=== PATIENT | male | born 1955 | race Caucasian/White ===

== ENCOUNTER → 2020-12-26 15:18 | Outpatient (CLI) | payer OTHER, SELFPAY ==
[2020-12-09 13:18] VITALS: BMI 28.5
--- NOTE | 2020-12-26 15:20 | MRI_ITS ---
STUDY: MRI RIGHT SHOULDER REASON FOR EXAM: Male, 65 years old. Right shoulder strain. TECHNIQUE: Standardized fat and water weighted pulse sequences were obtained in all 3 orthogonal planes. COMPARISON: X-ray dated 11/29/2020. FINDINGS: Focal full thickness nonretracted supraspinatus/subscapularis interface anterior insertional tendon tear measuring 1 cm x 1.5 cm (coronal image 15, axial image 11 series 2 and sagittal image 15). Low-grade delaminating component at the supraspinatus and infraspinatus articular surface (coronal images 5 through 13 series 5). Mild/moderate supraspinatus, infraspinatus and subscapularis tendinosis. Normal teres minor tendon. No muscle atrophy. Moderate/severe intracapsular long biceps tendinosis with fraying and degeneration of the biceps labral anchor. Labral degeneration with small posterior inferior labral tear (axial images 16 and 17 series 2). Capsular ligaments intact with mild thickening. Normal rotator cuff interval. Small glenohumeral joint effusion with fluid extending to tear into the subacromial subdeltoid bursa. No acute fracture, dislocation or cortical destruction. Mild/moderate glenohumeral cartilage loss predominating inferiorly. Moderate acromioclavicular joint arthrosis. Anterior interval early narrowing. Intact coracohumeral and coracoacromial ligaments. Normal quadrilateral space. Normal axillary space. Normal deltoid muscle. Normal trapezius muscle. MRI/Upper Ext Joint Only(Routine) IMPRESSION: Focal full thickness nonretracted supraspinatus/subscapularis tendon tear with delaminating component Rotator cuff tendinosis without muscle atrophy Moderate/severe intracapsular long biceps tendinosis with fraying and degeneration of the biceps labral anchor Labral degeneration with small posterior inferior labral tear Mild capsular thickening/early adhesive change Glenohumeral and AC joint arthrosis with early anterior interval narrowing Small joint effusion with fluid extending through tear into the subacromial subdeltoid bursa Electronically Signed: Roosevelt Horne DO at 8:59 EDT Tel , Service support ,
== END ==
PROVIDERS: Referring Provider Physician Assistant Surgical; Visit Provider Physician Assistant Surgical
DX: S46.911A Strain of unspecified muscle, fascia and tendon at shoulder and upper arm level, right arm, initial encounter (principal); X58.XXXA Exposure to other specified factors, initial encounter; Y93.9 Activity, unspecified; Y92.9 Unspecified place or not applicable; Y99.9 Unspecified external cause status
CPT/HCPCS: 73221

== ENCOUNTER 2021-03-23 14:00 | Outpatient (RCR) | payer OTHER, SELFPAY ==
[2021-01-12 07:48] VITALS: BMI 28.1
--- NOTE | 2021-02-06 13:56 | HP.PTEVAL_ITS ---
Patient's Visit Information NESHA MERCHANT is a 65 year old M referred to Physical Therapy by Dr. Ra Lange DO with a diagnosis of Right Shoulder. Date of Evaluation: 02/06/21 Physical Therapist: Estela Pollard DPT - Visit Plan Frequency: 2-3x /Week Duration: 4 Weeks Plan: Focus on UE and scapular s/s- lifting mechanics and push/pull for job related tasks - Subjective December 26-Was holding a lead and the horse went straight overhead- he came into [facility]- took a look at it and had an MRI. MRI showed a tear- went to see Dr. Carnes did an injection last Saturday- it hurt worse after that- but is now a little improved. Right hand dominate. His current symptoms are night time. Sleep: disturbed- stiffens up- wakes him at night. Does have some pain during the day when he pushes it to hard at work. Pain is located in the AC joint and radiates to the shoulder blade and down to the elbow. Does have some pain into the forearm. Worst: 8/10 Agg: movement, sleep, not moving it. Eases: ice Best: 0/10. Describes the pain as clicking, sharp/stabbing pain. 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 No neck pain, JENKINS, blurred vision or dizziness. 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 No prior issues with shoulder. Goes back to the MD in 2 weeks. Was working out in a [employer] and [employer]- Declaration- 5x a week. PMHx/Meds: none since saw MD - Objective Posture: FH, RS- can correct but does not maintain. Gait: no deviation good trunk rotation and arm swing. Palpation: tender along infraspinatus, upper trap and into the bicipital groove. ROM: WFL in all planes with pain at end range flexion, abduction, internal rotation. Sensation: WNL. Strength: Scap: fair plus, Shoulder: 4+/5 throughout, Elbow:4+/5- pain with palm up, Wrist: 5/5 Hand Marker: 80 bilateral. Special Test: Speeds: positive, Carpenter: positive - Balance/Special Test Scores Quick DASH Score: 22.7250 - Goals Goal 1:: Patient will be I with HEP and progression Goal Time Frame: 4-6 Weeks Goal 2:: Patient will demo full AROM of the right shoulder without pain Goal Time Frame: 4-6 Weeks Goal 3:: Patient will report no pain with work related tasks for 1 week Goal Time Frame: 4-6 Weeks Goal 4:: Patient will maintain proper posture t/o tx to demo increased scap s/s. Goal Time Frame: 4-6 Weeks - Rehabilitation Potential Physical Therapy Diagnosis: Patient presents with hypomobility s/p work injury. He has decreased pain free ROM, scapular and UE strength/stabilization and muscular endurance leading to fair posture and increased pain with ADL's. Rehabilitation Potential: Fair - Anticipated Interventions Patient/Client Instruction: Educate patient on: Benefits of Fitness Program Therapeutic Exercise to Include: Strength training, Endurance training, Agility training, Body mechanics, Postural training, Flexibilty training, Neuromotor development, Dynamic Lumbar Stabilization, Scapular Strength/Stabilization For the Purpose of:: To improve muscle performance and motor function Cryotherapy (ice pack, ice massage): Yes Thermo therapy (hot pack): Yes Thank you for the opportunity to evaluate your patient. For Medicare and Medicare HMO plans, please review the plan of care and approve it. It will need to be FAXED BACK to us at [phone] for Medicare purposes. For Medicare only, by signing this I certify the plan of care. Please let me know if there are questions or concerns regarding this plan of care. Physician Signature: Date:
--- NOTE | 2021-03-07 17:23 | HP.PTREVAL ---
Dr. aR Lange, DO, It has been my pleasure to treat NESHA MERCHANT over the last 9 visits for Right Shoulder. Please see the progress note below for an update on the physical therapy plan of care! Subjective: Pt. reports having ~0.5/10 pain currently. Pt. reports having to be careful with any lifting in his R UE. Pt. is doing most activities at work, but is limited with [place] activities. Objective/Function: ROM: R shoulder: AROM: flexion 165deg, abd 150deg increase NW, functional ER C4, functional IR L3 NE. Pt. has increased pain with abd motion. MMT: R shoulder: flexion 4+/5, abd 4/5 increase NW, ext 5/5, ER 4+/5, IR 5/5. Pt. is overall improving, but still has pain with over head movements and with abduction with wt. Pt. has weakness in this range as well. Pt. has increased strength. He is hopeful to reduce all symptoms in order to get back to work without limitations or pain. Plan Plan: Cont. with POC with focus on strength of RTC and deltoid. Asking for extension of date range. Balance/Gait/Functional tests - Balance/Special Test Scores Quick DASH Score: 15.9075 Goals Goal 1:: Patient will be I with HEP and progression Goal Time Frame: 4-6 Weeks Goal 2:: Patient will demo full AROM of the right shoulder without pain Goal Time Frame: 4-6 Weeks Goal 3:: Patient will report no pain with work related tasks for 1 week Goal Time Frame: 4-6 Weeks Goal 4:: Patient will maintain proper posture t/o tx to demo increased scap s/s. Goal Time Frame: 4-6 Weeks Anticipated Interventions Patient/Client Instruction: Educate patient on: Benefits of Fitness Program Therapeutic Exercise to Include: Strength training, Endurance training, Agility training, Body mechanics, Postural training, Flexibilty training, Neuromotor development, Dynamic Lumbar Stabilization, Scapular Strength/Stabilization For the Purpose of:: To improve muscle performance and motor function Cryotherapy (ice pack, ice massage): Yes Thermo therapy (hot pack): Yes Please do not hesitate to contact me at [phone] by phone or if you have questions or concerns regarding this new plan of care! Sincerely, Willy Bach DPT
--- NOTE | 2021-03-23 14:39 | HP.PTDCSUM ---
It has been my pleasure to treat NESHA MERCHANT referred by Dr. Ra Lange DO, with the diagnosis of Right Shoulder for a total of 13 visit(s). Discharge Date: 03/23/21 Please see the following information for a summary of their discharge status. Subjective: Pt. reports having 3/10 pain upon arrival today. He is still having pain with reaching, lifting, even having his arm dangle at his side is painful. He is doing his work activities, but has to modify his work to accommodate. He denies N/T in his RUE, currently, but has has some in the past. Right Shoulder Pain Intensity (Out of 10): 3 % Improvement: 40 Objective/Function: ROM: R shoulder AROM: flexion 160deg increase NW, abd 155deg increase NW, functional ER C3 increase NW, functional IR increase worse L4. PROM: flexion 170deg NE, abd 177deg increase NW, ER at 90eg 70deg increase NW, IR at 90deg 50deg increase NW. MMT: RUE: shoulder: flexion 5-/5 increase NW, abd 4+/5 increase NW, ER 4/5 increase NW, IR 5-/5 increase NW, ext 5/5 NE. SPECIAL TESTING: - empty can, + HK, - biceps load, - speeds, - horn blowers, - lift off test,. Pt. filled out quick dash as well. Pt. was treated with ROM and strengthening. He is I with HEP. He is sleeping with frequent interruptions secondary to R shoulder pain. He has pain with arm dangling at side. Minimal pain with palpation. Slight pain at bicipital groove and slight pain at supraspinatus insertion Goal 1:: Patient will be I with HEP and progression Goal Progress: Goal Met Goal 2:: Patient will demo full AROM of the right shoulder without pain Goal Progress: Progressing Goal 3:: Patient will report no pain with work related tasks for 1 week Goal Progress: Progressing Goal 4:: Patient will maintain proper posture t/o tx to demo increased scap s/s. Goal Progress: Progressing Plan: Pt. will be DC from PT at this point in time. Pt. to follow up with physician to determine best course of action. Discharge Comments: Pt. has made some gains in PT with strength, but continues to be limited with his end range of motion and is still having increased pain with sleeping and with having his arm dangle at his side. He is concerned about his symptoms, especially with sleeping. He is I with HEP and will be DC to HEP and to follow up with physician at this point in time. If there are questions or concerns regarding this patient's physical therapy, please feel free to call me at [phone]. Thank you for the referral of this patient. Sincerely, Willy Bach, RANDALLT Balance/Gait/Functional tests - Balance/Special Test Scores Quick DASH Score: 30.0000
== END 2021-03-23 19:00 | disposition home or self-care (01) ==
LOC: PT 14:00
PROVIDERS: PCP Nurse Practitioner Primary Care; Referring Provider Orthopaedic Surgery; Visit Provider Orthopaedic Surgery
DX: S46.911D Strain of unspecified muscle, fascia and tendon at shoulder and upper arm level, right arm, subsequent encounter (principal); S46.211D Strain of muscle, fascia and tendon of other parts of biceps, right arm, subsequent encounter
CPT/HCPCS: 97110; 97162; 97164

== ENCOUNTER 2021-05-20 18:32 | Inpatient (IN) | payer BC, SELFPAY ==
[2021-05-20] VITALS (7 sets, daily range): BP systolic 141–148; BP diastolic 73–85; PULSE 64–72; RESP 18–24; TEMP 36.8–38.3; O2SAT 94–99; BMI 29.6; BMI 29.7
--- NOTE | 2021-05-20 19:35 | EKG12_ITS ---
Test Reason : DYSRHYTHMIA Blood Pressure : / mmHG Vent. Rate : 072 BPM Atrial Rate : 072 BPM P-R Int : 162 ms QRS Dur : 094 ms QT Int : 386 ms P-R-T Axes : 030 018 024 degrees QTc Int : 422 ms Normal sinus rhythm Normal ECG Confirmed by CORNEL DAVIDSON, ABDI ([id number]), editor city SARAN AGUILAR ([id number]) on 05/22/2021 1:41:14 PM Referred By: Confirmed By:ABDI UNGER MD
[2021-05-20] MEDS: Acetaminophen 500 MG Tablet 1000 MG PO (19:50)
--- NOTE | 2021-05-20 19:54 | RAD_ITS ---
STUDY: X-RAY CHEST REASON FOR EXAM: Male, 65 years old. sob , fever, shortness of breath TECHNIQUE: AP COMPARISON: None. FINDINGS: EKG leads project over the chest. Multifocal infiltrates with features commonly reported with COVID pneumonia. There is no demonstrated pleural abnormality. Normal size heart. Normal mediastinum and breanna. Normal visualized pulmonary arteries. Normal visualized aortic arch and descending thoracic aorta. Normal visualized thoracic spine. Normal visualized ribs, clavicles, and shoulders. There is no demonstrated abnormality of the visualized soft tissue structures of the upper abdomen. RAD/Chest 1 View (Portable) IMPRESSION: Multifocal infiltrates with features commonly reported with COVID pneumonia. Electronically Signed: Jeremías Galindo MD ([place]) at 20:25 EST , Service support ,
[2021-05-20 20:03] LABS: Absolute Lymphocyte Count 0.67 X10^3/uL (0.83-4.51); Absolute Neutrophil Count 5.6 X10^3/uL (2.0-7.7); Basophil# 0.01 X10^3/uL; Basophil% 0.2 % (0-1); Eosinophil# 0.02 X10^3/uL; Eosinophils% 0.3 % (0-5); Hematocrit 35.6 % (40-54); Hemoglobin 12.4 g/dL (13.0-16.5); Lymphocyte # 0.67 X10^3/ul (0.83-4.51); Lymphocyte % 10.1 % (19-41); Mean Corp Hgb Conc 34.8 g/dL (32-36); Mean Corpuscular Hgb 30.1 pg (27.0-32.0); Mean Corpuscular Volume 86.4 fL (80-94); Mean Platelet Vol. 9.7 fl (6.2-12.0); Monocyte# 0.25 X10^3/uL; Monocyte% 3.8 % (0-10); NRBC Flagged by Analyzer 0 % (0-5); Neutrophil # 5.59 X10^3/uL (2.7-7.7); Neutrophil % 84.2 % (47-70); Platelet Count 210 K/mm3 (150-450); RBC Distribution Width CV 11.4 % (11.6-14.6); RBC Distribution Width SD 36.4 fl (35.1-43.9); Red Blood Count 4.12 M/mm3 (4.6-6.2); White Blood Count 6.6 K/mm3 (4.4-11.0)
[2021-05-20 20:21] LABS: Anion Gap 6 (5-15); BUN 13 mg/dL (7-18); Calcium,Total 8.3 mg/dL (8.5-10.1); Chloride 98 mmol/L (98-107); Creatinine, Serum 0.82 mg/dL (0.70-1.30); EST Glomerular Filtration Rate 101 mL/min (>60); Est Glom Filt Rate - Afr Amer 122 mL/min (>60); Estimated Creatinine Clearance 88.05 ml/min; Glucose 118 mg/dL (74-106); Potassium 3.8 mmol/L (3.5-5.1); Sodium Level 132 mmol/L (136-145); Troponin-I HS 15 pg/mL (3.0-78.0)
--- NOTE | 2021-05-20 20:44 | EDS_ITS ---
HPI History of Present Illness Chief Complaint: Shortness of Breath Informant: patient Narrative Narrative: 65-year-old male presenting with fever, body aches, shortness of breath, cough. He states he started having symptoms of Covid approximately 10 days ago. He took a home Covid test approximately 1 week ago which was positive. He is not vaccinated for Covid. His family members have not had symptoms. He denies chest pain. He complains of shortness of breath which is worsened with exertion. Prior similar symptoms: No Recent Illness/Hospitalization: No PFSH PFSH Medical History no medical history Home Medications NK 05/20/21 [History Last Taken Unknown] Allergy/AdvReac Type Severity Reaction Status Date / Time No Known Allergies Allergy Verified 05/20/21 18:41 Social History (Updated 01/30/21 @ 12:59 by Gilma Moore) household members: spouse, children and other details: [id number] housing: house current occupational status: employed current occupation: [employer] pets and animals: Yes pets and animals: dog(s) Smoking Status: Never smoker alcohol intake: current alcohol intake frequency: a few times a week substance use type: does not use what type of physical activity do you participate in: other details: crossfit frequency: 5-6 times per week seatbelt use: always do you feel safe at home: Yes ROS ROS ED Constitutional Constitutional ED: Reports chills and fever(s) Eyes Eyes: Denies change in vision ENT ENT ED: Denies rhinorrhea or sore throat Cardiovascular Cardiovascular: Denies chest pain or palpitations Respiratory/Chest Respiratory/Chest: Reports cough and dyspnea Gastrointestinal Gastrointestinal: Reports diarrhea; Denies abdominal pain, nausea or vomiting Genitourinary Genitourinary ED: Denies dysuria Musculoskeletal Musculoskeletal: Reports myalgias Integumentary Denies rash Neurologic Neurologic: Denies headache(s) Psychiatric Psychiatric: Denies suicidal thoughts EXAM Physical Exam Const Vital Signs: 05/20/21 18:35 05/20/21 18:38 05/20/21 19:50 Temperature 101.0 F H Temperature Source Oral Pulse Rate 72 Respiratory Rate 24 H Respiratory Effort Short of Breath Blood Pressure 147/85 H Blood Pressure Mean 105 Pulse Ox 94 97 Oxygen Delivery Method Room Air Nasal Cannula Oxygen Flow Rate (L/min) 2 05/20/21 21:00 05/20/21 21:19 05/20/21 21:23 Temperature 99.5 F H 99.5 F H Temperature Source Oral Oral Pulse Rate 64 64 64 Respiratory Rate 18 18 18 Respiratory Effort Blood Pressure 141/73 H 144/78 H 144/78 H Blood Pressure Mean 95 100 100 Pulse Ox 98 99 99 Oxygen Delivery Method Nasal Cannula Nasal Cannula Nasal Cannula Oxygen Flow Rate (L/min) 2 2 2 Positive well nourished and well developed General Appearance ED: well developed HEENT Reports normocephalic and head/scalp atraumatic Eyes PERRL and EOMs intact bilaterally Neck supple General: Negative for tenderness Chest Wall inspection of chest normal Resp normal respiratory effort Auscultation: diminished lung sounds Cardio regular rate and regular rhythm GI non-tender and non-distended Palpation: soft; Negative for guarding or rebound tenderness present no CVA tenderness Extremity normal to inspection Neuro oriented x3 Sensorium / Orientation: alert Psych mental status grossly normal MDM MDM MDM Narrative Medical decision making narrative: Patient was given Tylenol for his fever. He was put on nasal cannula oxygen. Chest x-ray read by myself and radiology shows multifocal infiltrates with features commonly reported with Covid pneumonia. Labs were reviewed. Troponin is negative. With ambulation his pulse ox drops to 86% on room air. He was given Decadron. Discussed with hospitalist for admission. Lab Data Attestation: I reviewed the patient's lab results. Labs: Laboratory Results - last 24 hr 05/20/21 05/20/21 19:56 19:56 WBC 6.6 RBC 4.12 L Hgb 12.4 L Hct 35.6 L MCV 86.4 MCH 30.1 MCHC 34.8 RDW Std Deviation 36.4 RDW Coeff of Juan José 11.4 L Plt Count 210 MPV 9.7 Immature Gran % (Auto) 1.400 H Neut % (Auto) 84.2 H Lymph % (Auto) 10.1 L Gila % (Auto) 3.8 Eos % (Auto) 0.3 Baso % (Auto) 0.2 Absolute Neuts (auto) 5.6 Absolute Lymphs (auto) 0.67 L Nucleated RBC % 0 Sodium 132 L Potassium 3.8 Chloride 98 Carbon Dioxide 28.0 Anion Gap 6 BUN 13 Creatinine 0.82 Estim Creat Clear Calc 88.05 Est GFR (MDRD) Af Amer 122 Est GFR (MDRD) Non-Af 101 BUN/Creatinine Ratio 16.0 Glucose 118 H Calcium 8.3 L Troponin I High Sens 15 Radiography Chest X-Ray - ED: 1 View, Read by ED Physician and Read by Radiologist Diagnostic Testing: Clinical Impression(s) from Imaging Studies Chest X-Ray 05/20/21 19:54 IMPRESSION: Multifocal infiltrates with features commonly reported with COVID pneumonia. Electronically Signed: Jeremías Galindo MD ([place]) at 20:25 EST , Service support , EKG Initial EKG: Attestation: I personally reviewed and interpreted this EKG as follows: Interpretation: Sinus Rhythm and No Acute Injury Pattern Discharge Plan Triage Chief Complaint: Shortness of Breath ED Provider: Janet Franks Dx/Rx/DC Orders Clinical Impression: Pneumonia due to COVID-19 virus, Hypoxia Prescriptions: No Action NK RF: 0 Primary Care Provider: Luke Nails Referrals: Luke Nails MD [Primary Care Provider] - Disposition Disposition: Acute Care Hospital [facility]
--- NOTE | 2021-05-20 21:14 | PCM.HP.STD ---
HPI - General General Date of Admission: 05/20/21 Date of Service: 05/20/21 Chief Complaint: COVID, worsening symptoms. HPI Narrative The patient is a 65 y/o M w/ no marked PMHx, not vaccinated against COVID-19 who presents to the [facility] ED on 05/20/21 with history of onset COVID type symptoms with fever, body aches, cough, dyspnea starting 10 days prior with a home Covid test approximately 1 week ago which was positive at that time with no other ill family members however has not been improving with worsening shortness of breath prompting ED evaluation. Patient reports having fevers, chills, frontal headaches, body aches, cough and dyspnea but no alteration to sense of taste or smell nor any nausea, vomiting, diarrhea, abdominal discomfort. His was vaccinated and denies any symptoms at all. Patient is extremely active and works out regularly ([employer]). Work-up in the ED included T101, heart rate 72, respiratory rate 24, initially 94% on room air with decrease to 86% with activity, improvement to 98% on 2 L nasal cannula, CBC with WC 6.6, hemoglobin 12.4, platelet 210 with lymphopenia, BMP with sodium 132, glucose 118, troponin high-sensitivity 15, chest x-ray with multifocal infiltrates consistent with Covid pneumonia, EKG with sinus rhythm with no acute evidence of ischemia. In the ED patient ministered Tylenol as well as Decadron 6 mg. [facility] Medical History (Updated 05/20/21 @ 21:[address] Roxana Stover MD) No significant past medical history Medical History no medical history Home Medications NK 05/20/21 [History Last Taken Unknown] Allergy/AdvReac Type Severity Reaction Status Date / Time No Known Allergies Allergy Verified 05/20/21 18:41 Family History (Updated 05/20/21 @ 21:[address] Roxana Stover MD) Mother Diabetes Father Hypertension Surgical History (Updated 05/20/21 @ 21:[address] Roxana Stover MD) No history of previous surgery Social History (Updated 01/30/21 @ 12:59 by Gilma Moore) household members: spouse, children and other details: [id number] housing: house current occupational status: employed current occupation: [employer] pets and animals: Yes pets and animals: dog(s) Smoking Status: Never smoker alcohol intake: current alcohol intake frequency: a few times a week substance use type: does not use what type of physical activity do you participate in: other details: crossfit frequency: 5-6 times per week seatbelt use: always do you feel safe at home: Yes ROS ROS Narrative Admission Review of Systems: CONSTITUTIONAL: No weight loss, + fever, chills, weakness or fatigue. HEENT: + Headache. Eyes: No visual loss, blurred vision, double vision or yellow sclerae. Ears, Nose, Throat: No hearing loss, sneezing. SKIN: No rash or itching, lesions, wounds. CARDIOVASCULAR: No chest pain, chest pressure or chest discomfort, palpitations, edema, orthopnea, syncopal events. RESPIRATORY: + shortness of breath, cough, No marked sputum, wheezing, hemoptysis. GASTROINTESTINAL: + anorexia, No nausea, vomiting, diarrhea, abdominal pain, melena, BRBPR. GENITOURINARY: No dysuria, frequency, urgency or retention. NEUROLOGICAL: + headache, No dizziness, syncope, paralysis, ataxia, numbness or tingling in the extremities, focal weakness, change in bowel or bladder control, seizure. MUSCULOSKELETAL: + muscle, back pain, joint pain or stiffness. HEMATOLOGIC: No anemia, bleeding or bruising. LYMPHATICS: No enlarged nodes. No history of splenectomy. PSYCHIATRIC: No history of depression or anxiety. ENDOCRINOLOGIC: No reports of sweating, cold or heat intolerance. No polyuria or polydipsia. ALLERGIES: No history of asthma, hives, eczema or rhinitis. Vital Signs Vital Signs Vital Signs: 05/20/21 18:35 05/20/21 18:38 05/20/21 19:50 Temperature 101.0 F H Temperature Source Oral Pulse Rate 72 Respiratory Rate 24 H Respiratory Effort Short of Breath Blood Pressure 147/85 H Blood Pressure Mean 105 Pulse Ox 94 97 Oxygen Delivery Method Room Air Nasal Cannula Oxygen Flow Rate (L/min) 2 05/20/21 21:00 Temperature Temperature Source Pulse Rate 64 Respiratory Rate 18 Respiratory Effort Blood Pressure 141/73 H Blood Pressure Mean 95 Pulse Ox 98 Oxygen Delivery Method Nasal Cannula Oxygen Flow Rate (L/min) 2 Weight Weight: 195 lb Body Mass Index (BMI) 29.6 Physical Exam Narrative Physical Examination: General: Awake, alert, oriented x 3 and cooperative, seated upright in the ED bed, fatigued appearing, mildly increased RR. Skin: Normal color, normal turgor, no icterus, no cyanosis. HEENT: AT/NC, EOMI, PERRLA, moderately dry MM, no carotid bruits or JVD noted. Lungs: Diffusely diminished, greater bases, mildly increased respiratory rate, no rales, ronchi or wheezing. Heart: Regular rate and regular rhythm; no gallop, rub audible. Abdomen: Soft, obese, NTTP, NS, mildly hyperactive BS, no obvious HSM. Neurological: Patient awake, alert, oriented as noted, cognitive function intact; pupils equally reactive to light and accommodation, cranial nerves II-XII grossly normal, moving all 4 extremities, no focal deficits, strength moderately global decrease secondary to acute presentation. Psychiatric: Affect appears fatigued, no acute evidence of depressive or anxiety feelings. Results Lab / Micro Data Result Diagrams: 05/20/21 19:56 05/20/21 19:56 Labs: Laboratory Results - last 24 hr 05/20/21 19:56: WBC 6.6, RBC 4.12 L, Hgb 12.4 L, Hct 35.6 L, MCV 86.4, MCH 30.1, MCHC 34.8, RDW Std Deviation 36.4, RDW Coeff of Juan José 11.4 L, Plt Count 210, MPV 9.7, Immature Gran % (Auto) 1.400 H, Neut % (Auto) 84.2 H, Lymph % (Auto) 10.1 L, [place] % (Auto) 3.8, Eos % (Auto) 0.3, Baso % (Auto) 0.2, Absolute Neuts (auto) 5.6, Absolute Lymphs (auto) 0.67 L, Nucleated RBC % 0 05/20/21 19:56: Sodium 132 L, Potassium 3.8, Chloride 98, Carbon Dioxide 28.0, Anion Gap 6, BUN 13, Creatinine 0.82, Estim Creat Clear Calc 88.05, Est GFR (MDRD) Af Amer 122, Est GFR (MDRD) Non-Af 101, BUN/Creatinine Ratio 16.0, Glucose 118 H, Calcium 8.3 L, Troponin I High Sens 15 Radiology Impression Chest X-Ray 05/20/21 19:54 IMPRESSION: Multifocal infiltrates with features commonly reported with COVID pneumonia. Electronically Signed: Jeremías Galindo MD (Brooks) at 20:25 EST , Service support , Assessment & Plan Assessment/Plan (1) Pneumonia due to COVID-19 virus: (2) Hypoxia: PLAN: The patient is a 65 y/o M w/ no marked PMHx, not vaccinated against COVID-19 who presents to the [facility] ED on 05/20/21 with history of onset COVID type symptoms with fever, body aches, cough, dyspnea starting 10 days prior with a home Covid test approximately 1 week ago which was positive at that time with no other ill family members however has not been improving with worsening shortness of breath prompting ED evaluation. 1. Acute Hypoxia secondary to Acute Bilateral Pneumonia secondary to Acute Viral Syndrome, COVID-19: Will admit to the [facility], maintain on COVID precautions, will maintain on oxygen with wean as tolerated to room air, PRN albuterol, HOB, IS parameters w/ pending sputum cultures, respiratory viral panel and urine antigens, will obtain D-dimer, procalcitonin, CRP, CPK, Ferritin, LDH, liver profile and BNP, continue supportive care including q 2 hour turning including prone given no prone bed availability and judicious hydration, closely monitor for worsening status for ARDS and multiorgan failure, will initiate and continue IV decadron x 10 doses, given presentation timeline will also initiate IV remdesivir but defer to discretion of Infectious disease. If respiratory status worsens and patient requires airvo or BIPAP transition will initiate barcitinib regimen additionally with ID involvement. 2. Elevated BP without hypertensive diagnosis: Possibly secondary to acute presentation #1, not on any regimen with no history of hypertension, continue to monitor, as needed IV hydralazine in interim. 3. Hyponatremia, mild: Admission sodium 132, suspect mildly hypovolemic, will judiciously hydrate given acute presentation of 1, repeat CMP in AM. 4. Normocytic anemia, unclear of chronic: Admission hemoglobin 12.4, MCV 86.4, will repeat CBC in a.m. with judicious hydration as noted but could benefit from further outpatient evaluation. 5. DVT prophylaxis: SCDs, Lovenox. 6. CODE status: Given bilateral Covid pneumonia with hypoxia and unvaccinated state, discussed CODE status at length including difference between FULL code, DNR-CCA and DNR-CC status. Following discussions about the differences in these status, requested Full Code status. Amenable to airvo and BIPAP also. Advanced Care Planning Face to Face Time: 16 minutes. Charges/Coding Visit Charges Inpatient E&M: 41261 Init Hosp L2 Procedures Hospitalists Procedures: 31443 Advncd Care Plan 30 Min
[2021-05-20] MEDS: dexAMETHasone 4 MG Tablet 6 MG PO (21:17)
[2021-05-20 21:52] LABS: BNP,B-Type NATRIURETIC PEPTIDE 51.7 pg/mL (0-100); D-Dimer Quantitative (DVT/PE) 1.42 FEU/ug/m (0.27-0.49)
--- NOTE | 2021-05-20 21:56 | CT_ITS ---
HISTORY: Shortness breath, fever. Suspected pe. EXAMINATION: CTA Chest W/ Contrast Injection TECHNIQUE: Helically acquired images were obtained of the chest following IV contrast as per pulmonary angiogram protocol with MIP and MPR reconstructions. A radiation dose optimization technique was used for this scan. IV Contrast dosage and agent: 100mL [id number]-370 COMPARISON: None FINDINGS: LUNGS, PLEURA AND LARGE AIRWAYS: Multifocal patchy bilateral groundglass pulmonary opacities. Superimposed mild dependent atelectatic changes. No discrete pulmonary mass. Airways are patent. No pleural effusion or pleural thickening. No pneumothorax. PULMONARY ARTERIES: No pulmonary arterial filling defects identified. AORTA AND GREAT VESSELS: No thoracic aortic aneurysm or dissection. Great vessels are patent. HEART AND PERICARDIUM: Heart size within normal limits. No significant pericardial effusion. MEDIASTINUM AND KHUSHI: Multiple bilateral mediastinal and hilar lymph nodes. Enlarged infracarinal lymph nodes measuring up to 17 mm short axis diameter. Esophagus is unremarkable. THYROID: Unremarkable as visualized. UPPER ABDOMEN: No acute pathology. BONES: Intact with no suspicious osseous lesion. SOFT TISSUES: No acute findings. CT/CTA Chest W/WO Contrast IMPRESSION: 1. Bilateral groundglass pulmonary infiltrates suggesting atypical or viral pneumonia. Correlate with COVID status. 2. Likely reactive mediastinal adenopathy. Follow-up as clinically warranted. 3. No pulmonary embolus identified. Individualized dose optimization techniques were used for this CT. at 2304 Reported and signed by: Ed Duffy MD Electronically Signed: Ed Duffy MD at 23:03 EST Tel , Service support ,
[2021-05-20 21:57] LABS: AST(SGOT) 25 U/L (15-37); Alanine Aminotransfer ALT/SGPT 35 U/L (16-61); Albumin, Serum 2.7 g/dL (3.2-5.0); Alkaline Phosphatase 63 U/L (45-117); Bilirubin, Direct 0.11 mg/dL (0.00-0.30); Ferritin 542 ng/mL (26-388); Globulin 4.3 g/dL (2.2-4.2); LDH 212 U/L (87-241)
--- NOTE | 2021-05-20 22:58 | PCS.PANDOC ---
Addendum entered by Shona Dooley 05/21/21 04:19: Emergency documentation initiated 05/20/21 @ [id number] Original Note: PANDEMIC DOCUMENTATION INITIATED: Date: 02/13/2021 Time: 1899
[2021-05-21] VITALS (9 sets, daily range): BP systolic 128–166; BP diastolic 69–91; PULSE 57–70; RESP 16–18; TEMP 36.4–36.5; O2SAT 89–95
[2021-05-21] MEDS: 0.9% Normal Saline 1,000 ML 100 ML IV (00:04)
[2021-05-21] MEDS: Famotidine 20 MG Tablet PO ×2 (00:04→00:06)
[2021-05-21] MEDS: Enoxaparin 30 MG/0.3 ML Syringe SC ×2 (00:06→09:25)
[2021-05-21] MEDS: hydrALAZINE 20 MG/ML Vial 10 MG IV (04:32)
[2021-05-21 07:16] LABS: Absolute Lymphocyte Count 0.55 X10^3/uL (0.83-4.51); Absolute Neutrophil Count 3.2 X10^3/uL (2.0-7.7); Basophil# 0.02 X10^3/uL; Basophil% 0.5 % (0-1); Hematocrit 37.5 % (40-54); Hemoglobin 12.7 g/dL (13.0-16.5); Lymphocyte # 0.55 X10^3/ul (0.83-4.51); Lymphocyte % 13.7 % (19-41); Mean Corp Hgb Conc 33.9 g/dL (32-36); Mean Corpuscular Hgb 29.6 pg (27.0-32.0); Mean Corpuscular Volume 87.4 fL (80-94); Mean Platelet Vol. 9.7 fl (6.2-12.0); Monocyte# 0.15 X10^3/uL; Monocyte% 3.7 % (0-10); NRBC Flagged by Analyzer 0 % (0-5); Neutrophil # 3.24 X10^3/uL (2.7-7.7); Neutrophil % 80.9 % (47-70); POSITIVE DIFFERENTIAL YES; POSITIVE MORPHOLOGY YES; Platelet Count 230 K/mm3 (150-450); RBC Distribution Width CV 11.3 % (11.6-14.6); RBC Distribution Width SD 36.4 fl (35.1-43.9); Red Blood Count 4.29 M/mm3 (4.6-6.2)
[2021-05-21 07:20] LABS: Differential Indicated SCAN CRITERIA MET
[2021-05-21 07:34] LABS: ALB/GLOB Ratio 0.6 RATIO (0.9-2.4); AST(SGOT) 22 U/L (15-37); Alanine Aminotransfer ALT/SGPT 31 U/L (16-61); Albumin, Serum 2.5 g/dL (3.2-5.0); Alkaline Phosphatase 63 U/L (45-117); Anion Gap 5 (5-15); BUN 13 mg/dL (7-18); BUN/Creat Ratio 14.9 RATIO (10-20); Calcium,Total 8.5 mg/dL (8.5-10.1); Chloride 103 mmol/L (98-107); Creatinine, Serum 0.87 mg/dL (0.70-1.30); EST Glomerular Filtration Rate 93 mL/min (>60); Est Glom Filt Rate - Afr Amer 113 mL/min (>60); Globulin 4.4 g/dL (2.2-4.2); Glucose 152 mg/dL (74-106); Potassium 4.1 mmol/L (3.5-5.1); Protein, Total 6.9 g/dL (6.4-8.2); Sodium Level 135 mmol/L (136-145)
[2021-05-21] MEDS: dexAMETHasone 4 MG/ML Vial 6 MG IV (09:26)
--- NOTE | 2021-05-21 09:58 | PCM.DC ---
Discharge Instructions Diet Discharge Diet: No restrictions Activity Discharge Activity: Return to Normal Activity Additional Activity Instructions:: Please quarantine in your home and outside the home for a total of 20 days after your first symptoms of Covid appeared Follow Up Care Test Results: Test results from this visit will be discussed in further detail at your follow-up appointment, if applicable. Discharge Plan Admission Admit Date/Time: 05/20/21 21:19 Primary Reason for Your Visit: Covid 19 pneumonia Attending Provider: Ed Cavanaugh Primary Care Provider: Luke Nails Instructions Additional Instructions / Restrictions: You may use Robitussin-DM for cough, you may take Mucinex (or its generic equivalent) to thin out mucus Come back to the hospital if you experience increased shortness of breath Discharge Orders/Prescriptions Prescriptions: New dexamethasone 2 mg tablet 6 mg PO DAILY Qty: 24 RF: 0 Referrals / Follow Up: Luke Nails MD [Primary Care Provider] - Disposition Disposition (needs filled in before D/C Order can be placed): Home, Self Care
--- NOTE | 2021-05-21 10:04 | PCM.DC.SUM ---
Providers Date of Admission: 05/20/21 Date of Discharge: 05/21/21 Primary Care Physician: Dr. Luke Nails MD Reason For Visit: HYPOXIA, COVID PNA Diagnosis Discharge Diagnosis (1) Pneumonia due to COVID-19 virus: Status: Acute Code(s): U07.1 - COVID-19; J12.82 - Pneumonia due to coronavirus disease 2019 (2) Hypoxia: Status: Acute Code(s): R09.02 - Hypoxemia Plan: 1. COVID-19 pneumonia #2 acute hypoxic respiratory failure secondary to COVID-19 pneumonia Medications at Discharge Home Medications dexamethasone 6 mg PO DAILY #24 tab 05/21/21 Hospital Course Operations None Procedures None Summary of Care Provided Minutes Spent on Discharge: 31 Hospital Course: This [id number] white male was seen in the emergency room at [facility] with a chief complaint of shortness of breath, he had been diagnosed with COVID-19 approximately 1 week ago by using a home test. Patient has had symptoms for approximately 10 days. Work-up in the emergency room included a CBC which was unremarkable, patient's CHEM panel was also unremarkable. Patient's pulse ox on ambulation on room air in the emergency room was 86%. Patient was admitted to [place] [address], placed on IV Decadron and remdesivir, and he was reevaluated the morning of 05/21/2021. He was ambulated at that time on room air and his pulse ox was 89%. At rest, patient's pulse ox was 94%. I had discussions with the patient, I did not feel that he needed to remain in the hospital, I did tell the patient that there was a possibility he might have to come back to the hospital if his condition worsen. On 05/21/2021, patient was seen and examined: On examination he appeared in good health and spirits. Vital signs as documented. Skin warm and dry and without overt rashes. Neck without JVD, neck was supple, trachea midline, thyroid was normal. Lungs clear bilaterally, normal air movement was noted. Heart exam notable for regular rhythm, normal sounds and absence of murmurs, rubs or gallops. Abdomen unremarkable and without evidence of organomegaly, masses, or abdominal aortic enlargement. Bowel sounds are present, abdomen is not distended. Extremities nonedematous, no cyanosis was noted, no clubbing was noted. Neuro: Cranial nerves II through XII are grossly intact, no focal motor deficits were noted, sensation to light touch and pinprick intact, motor exam 5/5 throughout. Psych: Patient is alert and oriented x3, he does not appear anxious or depressed, he does not appear agitated. Patient was felt to be stable for discharge on 05/21/2021, he was instructed to quarantine for a total of 20 days after the onset of his symptoms of COVID-19. Patient was given a prescription for Decadron 6 mg daily to complete a total of 10 days. Patient was instructed to consider taking Robitussin-DM for cough and take Mucinex to act as a mucolytic. Weight / BMI Weight Weight: 86.9 kg Body Mass Index (BMI) 29.7 ABG / Lab / Microbiology Data Result Diagrams: 05/21/21 06:57 05/21/21 06:57 Laboratory: Laboratory Results - last 24 hr 05/20/21 19:56: WBC 6.6, RBC 4.12 L, Hgb 12.4 L, Hct 35.6 L, MCV 86.4, MCH 30.1, MCHC 34.8, RDW Std Deviation 36.4, RDW Coeff of Juan José 11.4 L, Plt Count 210, MPV 9.7, Immature Gran % (Auto) 1.400 H, Neut % (Auto) 84.2 H, Lymph % (Auto) 10.1 L, [place] % (Auto) 3.8, Eos % (Auto) 0.3, Baso % (Auto) 0.2, Absolute Neuts (auto) 5.6, Absolute Lymphs (auto) 0.67 L, Nucleated RBC % 0 05/20/21 19:56: Sodium 132 L, Potassium 3.8, Chloride 98, Carbon Dioxide 28.0, Anion Gap 6, BUN 13, Creatinine 0.82, Estim Creat Clear Calc 88.05, Est GFR (MDRD) Af Amer 122, Est GFR (MDRD) Non-Af 101, BUN/Creatinine Ratio 16.0, Glucose 118 H, Calcium 8.3 L, Troponin I High Sens 15 05/20/21 19:56: B-Natriuretic Peptide 51.7 05/20/21 19:56: Ferritin 542 H, Total Bilirubin 0.30, Direct Bilirubin 0.11, AST 25, ALT 35, Alkaline Phosphatase 63, Lactate Dehydrogenase 212, C-React Prot Ext Range 87.20 H, Total Protein 7.0, Albumin 2.7 L, Globulin 4.3 H 05/20/21 19:56: D-Dimer Quant (PE/DVT) 1.42 H* 05/21/21 06:57: WBC 4.0 L, RBC 4.29 L, Hgb 12.7 L, Hct 37.5 L, MCV 87.4, MCH 29.6, MCHC 33.9, RDW Std Deviation 36.4, RDW Coeff of Juan José 11.3 L, Plt Count 230, MPV 9.7, Immature Gran % (Auto) 1.200 H, Neut % (Auto) 80.9 H, Lymph % (Auto) 13.7 L, [place] % (Auto) 3.7, Eos % (Auto) 0.0, Baso % (Auto) 0.5, Absolute Neuts (auto) 3.2, Absolute Lymphs (auto) 0.55 L, Nucleated RBC % 0, Diff Path Review October05/21/21 06:57: Sodium 135 L, Potassium 4.1, Chloride 103, Carbon Dioxide 27.0, Anion Gap 5, BUN 13, Creatinine 0.87, Estim Creat Clear Calc 80.20, Est GFR (MDRD) Af Amer 113, Est GFR (MDRD) Non-Af 93, BUN/Creatinine Ratio 14.9, Glucose 152 H, Calcium 8.5, Total Bilirubin 0.40, AST 22, ALT 31, Alkaline Phosphatase 63, Total Protein 6.9, Albumin 2.5 L, Globulin 4.4 H, Albumin/Globulin Ratio 0.6 L 05/21/21 07:20: COVID-19 (CAMILO) Detected Microbiology: Microbiology 05/20/21 23:30 Urine, Clean Catch Legionella Antigen - Final 05/20/21 23:30 Urine, Clean Catch Streptococcus pneumoniae Antigen (M - Final Radiography Diagnostic Testing: Radiology Impression Chest X-Ray 05/20/21 19:54 IMPRESSION: Multifocal infiltrates with features commonly reported with COVID pneumonia. Electronically Signed: Jeremías Galindo MD ([place]) at 20:25 EST , Service support , Chest CTA 05/20/21 21:56 IMPRESSION: 1. Bilateral groundglass pulmonary infiltrates suggesting atypical or viral pneumonia. Correlate with COVID status. 2. Likely reactive mediastinal adenopathy. Follow-up as clinically warranted. 3. No pulmonary embolus identified. Individualized dose optimization techniques were used for this CT. at 2304 Reported and signed by: Ed Duffy MD Electronically Signed: Ed Duffy MD at 23:03 EST Tel , Service support , D/C Instructions Discharge Diet: No restrictions Additional Activity Instructions: Please quarantine in your home and outside the home for a total of 20 days after your first symptoms of Covid appeared Meaningful Use Info Meaningful Use Diagnoses (Choose all that apply): None applicable Discharge Plan Admission Admit Date/Time: 05/20/21 21:19 Primary Reason for Your Visit: Covid 19 pneumonia Attending Provider: Ed Cavanaugh Primary Care Provider: Luke Nails Instructions Additional Instructions / Restrictions: You may use Robitussin-DM for cough, you may take Mucinex (or its generic equivalent) to thin out mucus Come back to the hospital if you experience increased shortness of breath Discharge Orders/Prescriptions Prescriptions: New dexamethasone 2 mg tablet 6 mg PO DAILY Qty: 24 RF: 0 Referrals / Follow Up: Luke Nails MD [Primary Care Provider] - Disposition Disposition (needs filled in before D/C Order can be placed): Home, Self Care Charges/Coding Visit Charges Inpatient E&M: 49917 Disch Hosp
[2021-05-24 09:26] LABS: Pathologist Review Reviewed
== END 2021-05-21 13:33 | disposition home or self-care (01) | DRG 177 ==
LOC: ED 21:14 → MS3 21:29
PROVIDERS: Admitting Provider Family Medicine; Emergency Provider Emergency Medicine; PCP Family Medicine; Visit Provider Internal Medicine
DX: U07.1 COVID-19 (principal); J12.82 Pneumonia due to coronavirus disease 2019; E87.1 Hypo-osmolality and hyponatremia; E86.1 Hypovolemia; R09.02 Hypoxemia; Z28.3 Underimmunization status; R19.7 Diarrhea, unspecified; R03.0 Elevated blood-pressure reading, without diagnosis of hypertension
CPT/HCPCS: 36415; 71045; 71275; 80048; 80053; 80076; 82728; 83615; 83880; 84484; 85025; 85379; 86140; 87449; 87635; 93005; 99251; 99285; J7030; J7050; Q9967; U0005; A4216; G0463; U0003

== ENCOUNTER 2021-05-27 08:50 | Emergency (ER) | payer BC, SELFPAY ==
[2021-05-27] VITALS (7 sets, daily range): BP systolic 144–174; BP diastolic 80–92; PULSE 72–89; RESP 16; TEMP 36.3; O2SAT 96–97; BMI 28.8
--- NOTE | 2021-05-27 09:22 | EKG12_ITS ---
Test Reason : MEDICAL CLEARANCE Blood Pressure : / mmHG Vent. Rate : 070 BPM Atrial Rate : 070 BPM P-R Int : 168 ms QRS Dur : 096 ms QT Int : 408 ms P-R-T Axes : 050 005 041 degrees QTc Int : 440 ms Normal sinus rhythm Normal ECG Confirmed by CORNEL DAVIDSON, ABDI ([id number]), tractor operator helper SARAN AGUILAR ([id number]) on 05/30/2021 9:01:25 AM Referred By: BRISA Confirmed By:ABDI UNGER MD
[2021-05-27 09:48] LABS: Absolute Lymphocyte Count 1.13 X10^3/uL (0.83-4.51); Basophil# 0.03 X10^3/uL; Basophil% 0.3 % (0-1); Eosinophil# 0.04 X10^3/uL; Eosinophils% 0.4 % (0-5); Hematocrit 37.6 % (40-54); Hemoglobin 13.3 g/dL (13.0-16.5); Lymphocyte # 1.13 X10^3/ul (0.83-4.51); Mean Corp Hgb Conc 35.4 g/dL (32-36); Mean Corpuscular Hgb 30.1 pg (27.0-32.0); Mean Corpuscular Volume 85.1 fL (80-94); Mean Platelet Vol. 9.7 fl (6.2-12.0); Monocyte# 0.98 X10^3/uL; Monocyte% 10.4 % (0-10); NRBC Flagged by Analyzer 0 % (0-5); Neutrophil # 7.04 X10^3/uL (2.7-7.7); Neutrophil % 74.6 % (47-70); Platelet Count 441 K/mm3 (150-450); RBC Distribution Width CV 11.2 % (11.6-14.6); RBC Distribution Width SD 34.7 fl (35.1-43.9); Red Blood Count 4.42 M/mm3 (4.6-6.2); White Blood Count 9.4 K/mm3 (4.4-11.0)
--- NOTE | 2021-05-27 09:53 | ED.RN ---
pt has been told by doctor that he cannot receive Covid vaccine until July.
[2021-05-27 10:04] LABS: Anion Gap 7 (5-15); BUN 13 mg/dL (7-18); BUN/Creat Ratio 13.9 RATIO (10-20); Calcium,Total 9.1 mg/dL (8.5-10.1); Chloride 95 mmol/L (98-107); Creatinine, Serum 0.93 mg/dL (0.70-1.30); EST Glomerular Filtration Rate 86 mL/min (>60); Est Glom Filt Rate - Afr Amer 105 mL/min (>60); Estimated Creatinine Clearance 75.02 ml/min; Glucose 123 mg/dL (74-106); Sodium Level 129 mmol/L (136-145)
[2021-05-27 10:11] LABS: Alcohol, Blood (Medical)-Serum < 3.0 mg/dL
--- NOTE | 2021-05-27 10:14 | EDS_ITS ---
HPI History of Present Illness Chief Complaint: Suicidal Informant: patient Narrative Narrative: Patient had crisis called by his . He had thoughts of going to a storage unit that he has getting a firearm that was in there and shooting himself. He admits he is likely had a long history of depression anxiety but is never gotten to this point. This is related likely to a lot of financial and other stresses. He has never sought treatment before. He admits that he needs treatment. Of note, patient was recently diagnosed with Covid. He is about 10 to 12 days in from his diagnosis. He was admitted and discharged about 6 days ago. He is on dexamethasone now. This is a new med for him. He is not on no other meds. He states his Covid symptoms are essentially gone. He has no cough or dyspnea myalgias nausea vomiting. He feels fine. I do wonder if the Decadron he is on may have contributed to his current symptoms. Certainly he needed them with the illness that he had. [facility] Medical History No significant past medical history Home Medications dexamethasone 6 mg PO DAILY #24 tab 05/21/21 [Rx Last Taken Unknown] Allergy/AdvReac Type Severity Reaction Status Date / Time No Known Allergies Allergy Verified 05/20/21 18:41 Family History Mother Diabetes Father Hypertension Surgical History No history of previous surgery Social History household members: spouse, children and other details: [id number] housing: house current occupational status: employed current occupation: [employer] pets and animals: Yes pets and animals: dog(s) Smoking Status: Never smoker alcohol intake: current alcohol intake frequency: a few times a week substance use type: does not use what type of physical activity do you participate in: other details: crossfit frequency: 5-6 times per week seatbelt use: always do you feel safe at home: Yes ROS ROS ED Constitutional Constitutional ED: Denies chills or fever(s) Eyes Eyes: Denies blurry vision ENT ENT ED: Denies rhinorrhea or sore throat Cardiovascular Cardiovascular: Denies chest pain or palpitations Respiratory/Chest Respiratory/Chest: Denies cough or dyspnea Gastrointestinal Gastrointestinal: Denies diarrhea, nausea or vomiting Genitourinary Genitourinary ED: Denies dysuria Musculoskeletal Musculoskeletal: Denies myalgias Integumentary Denies rash Neurologic Neurologic: Denies headache(s) Psychiatric Psychiatric: Denies depression Endocrine Endocrinology: Denies polydipsia or polyuria Allergic/Immunologic Allergic/Immunologic ED: Denies urticaria EXAM Physical Exam Const Vital Signs: 05/27/21 08:50 05/27/21 10:05 05/27/21 11:24 Temperature 97.3 F L Temperature Source Temporal Pulse Rate 89 72 Respiratory Rate 16 16 16 Blood Pressure 174/92 H Blood Pressure Mean 119 Pulse Ox 97 96 Oxygen Delivery Method Room Air 05/27/21 12:00 05/27/21 13:12 05/27/21 14:22 Temperature Temperature Source Pulse Rate 80 Respiratory Rate 16 16 16 Blood Pressure 144/80 H Blood Pressure Mean 101 Pulse Ox 96 Oxygen Delivery Method Room Air Positive well nourished and well developed General Appearance ED: well developed and NAD HEENT Reports moist mucous membranes Negative for trauma or tenderness Eyes Negative for EOMs intact bilaterally General Eye ED: Negative for pale conjunctiva Neck No no lymphadenopathy and supple Chest Wall inspection of chest normal Resp normal respiratory effort and clear to auscultation bilaterally Auscultation: Negative for rales, rhonchi or wheezes Cardio regular rate GI normal to inspection, nondistended, normoactive bowel sounds and non-tender Palpation: soft Back/Spine no CVA tenderness Extremity normal to inspection General Extremety ED: Negative for tenderness Psych mental status grossly normal Skin no rashes or lesions noted MDM MDM MDM Narrative Medical decision making narrative: Patient CBC shows no marked abnormalities. Electrolytes are normal other than minimal decrease of sodium. Glucose is 123. Alcohol is negative. Talk screen urinalysis is negative. Covid was negative. Although this patient recently had Covid and is still on steroids, he has no symptoms and his screen is now negative. Patient is medically clear for psychiatric evaluation and admission if needed. Lab Data Attestation: I reviewed the patient's lab results. Labs: Laboratory Results - last 24 hr 05/27/21 05/27/21 05/27/21 09:41 09:41 09:41 WBC 9.4 RBC 4.42 L Hgb 13.3 Hct 37.6 L MCV 85.1 MCH 30.1 MCHC 35.4 RDW Std Deviation 34.7 L RDW Coeff of Juan José 11.2 L Plt Count 441 MPV 9.7 Immature Gran % (Auto) 2.300 H Neut % (Auto) 74.6 H Lymph % (Auto) 12.0 L [place] % (Auto) 10.4 H Eos % (Auto) 0.4 Baso % (Auto) 0.3 Absolute Neuts (auto) 7.0 Absolute Lymphs (auto) 1.13 Nucleated RBC % 0 Sodium 129 L Potassium 4.0 Chloride 95 L Carbon Dioxide 27.0 Anion Gap 7 BUN 13 Creatinine 0.93 Estim Creat Clear Calc 75.02 Est GFR (MDRD) Af Amer 105 Est GFR (MDRD) Non-Af 86 BUN/Creatinine Ratio 13.9 Glucose 123 H Calcium 9.1 Urine Color Urine Clarity Urine pH Ur Specific [place] Urine Protein Urine Glucose (UA) Urine Ketones Urine Occult Blood Urine Nitrite Urine Bilirubin Urine Urobilinogen Ur Leukocyte Esterase Urine RBC Urine WBC Ur Squamous Epith Cells Urine Bacteria Urine Mucus Urine Opiates Screen Urine Methadone Screen Ur Barbiturates Screen Ur Phencyclidine Scrn Ur Amphetamines Screen U Methamphetamin-MDMA U Benzodiazepines Scrn Urine Cocaine Screen U Cannabinoids Screen Ur Drug Screen Comment Ethyl Alcohol < 3.0 05/27/21 05/27/21 10:20 10:20 WBC RBC Hgb Hct MCV MCH MCHC RDW Std Deviation RDW Coeff of Juan José Plt Count MPV Immature Gran % (Auto) Neut % (Auto) Lymph % (Auto) [place] % (Auto) Eos % (Auto) Baso % (Auto) Absolute Neuts (auto) Absolute Lymphs (auto) Nucleated RBC % Sodium Potassium Chloride Carbon Dioxide Anion Gap BUN Creatinine Estim Creat Clear Calc Est GFR (MDRD) Af Amer Est GFR (MDRD) Non-Af BUN/Creatinine Ratio Glucose Calcium Urine Color Yellow Urine Clarity Clear Urine pH 6.5 Ur Specific [place] 1.015 Urine Protein 15 H Urine Glucose (UA) Normal Urine Ketones Negative Urine Occult Blood 10 H Urine Nitrite Negative Urine Bilirubin Negative Urine Urobilinogen Normal Ur Leukocyte Esterase Negative Urine RBC 0 SEEN Urine WBC 0 SEEN Ur Squamous Epith Cells 0 SEEN Urine Bacteria 0 SEEN Urine Mucus 0 SEEN Urine Opiates Screen NEGATIVE Urine Methadone Screen NEGATIVE Ur Barbiturates Screen NEGATIVE Ur Phencyclidine Scrn NEGATIVE Ur Amphetamines Screen NEGATIVE U Methamphetamin-MDMA NEGATIVE U Benzodiazepines Scrn NEGATIVE Urine Cocaine Screen NEGATIVE U Cannabinoids Screen NEGATIVE Ur Drug Screen Comment Ethyl Alcohol EKG Initial EKG: Comments: EKG done as part of medical clearance read by me shows a sinus rhythm with overall rate of 70. No acute infarct or ischemia. No ectopy. WV interval, QRS duration and QTc normal. Discharge Plan Triage Chief Complaint: Suicidal ED Provider: Drew Das Dx/Rx/DC Orders Clinical Impression: Suicide ideation Prescriptions: No Action dexamethasone 2 mg tablet 6 mg PO DAILY Qty: 24 RF: 0 Primary Care Provider: Luke Nails Referrals: Luke Nails MD [Primary Care Provider] - Disposition Disposition: Psychiatric Hospital or Unit Discharge Location: [facility]
[2021-05-27 10:27] LABS: Bacteria 0 SEEN /hpf (None Seen); Mucous, Urine 0 SEEN /hpf (<or=2+); Red Blood Cells-Urine 0 SEEN /hpf (0-5); Squamous Epithelial Cells - UA 0 SEEN /hpf (0-5); White Blood Cells 0 SEEN /hpf (0-5)
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
[2021-05-27 10:35] LABS: Color, Urine Yellow (Yellow); Glucose, Dipstick Normal (Normal); Ketone-Dipstick Negative (Negative); Leukocyte Esterase-Dipstick Negative /ul (Negative); Nitrite-Dipstick Negative (Negative); Occult Blood-Urine 10 /ul (Negative); Protein-Dipstick 15 mg/dl (Negative); Specific Gravity, Urine 1.015 (1.002-1.030); Urine Bilirubin Dipstick Negative (Negative); Urine Clarity Clear (Clear); Urine Urobilinogen Normal (Normal); Urine pH 6.5 (5.0 - 8.0)
--- NOTE | 2021-05-27 11:00 | CM.ED ---
Referral called to [facility], not in network with insurance. Call to [facility], in network with insurance, no beds. Call to [facility], [facility] states in network with insurance and will have discharges today. Referral to be faxed. Call to [facility], in network with patient's insurance and beds available. Referral to be faxed. Derek Hays, ROLL COATING MACHINE OPERATOR, WATER TREATMENT PLANT SUPERVISOR
[2021-05-27 11:06] LABS: Amphetamine Urine VISTA NEGATIVE (<1000 ng/mL); Barbiturate Urine VISTA NEGATIVE (< 200 ng/mL); Benzodiazepine Urine VISTA NEGATIVE (< 200 ng/mL); Cocaine Urine VISTA NEGATIVE (< 300 ng/mL); Ecstacy Urine VISTA NEGATIVE (< 500 ng/mL); Methadone Urine VISTA NEGATIVE (< 300 ng/mL); PCP Urine VISTA NEGATIVE (< 25 ng/mL); THC Urine VISTA NEGATIVE (< 50 ng/mL); Vista UDS pH Range 6
--- NOTE | 2021-05-27 11:59 | ED.RN ---
RN asked patient if he would like something to eat or drink for lunch. patient denies at the time. RN stated please let me know if you change your mind.
--- NOTE | 2021-05-27 12:12 | CM.ED ---
Addendum entered by Barby Hays 05/27/21 12:21: Patient declined by [facility] due to patient's recent diagnosis of COVID-19. Original Note: Referrals have been faxed to [facility]. Pending acceptance at this time. Derek Hays, HULL OUTFIT SUPERVISOR, FORMULATION SCIENTIST
[2021-05-27] MEDS: hydrOXYzine PAM 25 MG Capsule 50 MG PO (13:47)
--- NOTE | 2021-05-27 15:15 | CM.ED ---
Patient has been accepted to [facility] by Dr. Wong. Nurse to call report. [facility] has set up transport. Derek Hays, SKIP TENDER, INFORMATION TECHNOLOGY ANALYST
--- NOTE | 2021-05-27 15:18 | ED.RN ---
ATTEMPTED TO CALL REPORT, NURSE HAS STEPPED OFF THE UNIT AND WILL CALL BACK. WAS TOLD TO SEND PT WITHOUT REPORT GIVEN.
--- NOTE | 2021-05-27 15:56 | ED.RN ---
NURSE AT [facility] HAS CALLED BACK FOR REPORT.
== END 2021-05-27 15:20 ==
PROVIDERS: Emergency Provider Emergency Medicine; PCP Family Medicine
DX: R45.851 Suicidal ideations (principal); Z79.52 Long term (current) use of systemic steroids; Z86.16 Personal history of COVID-19
CPT/HCPCS: 80048; 80307; 81001; 82077; 85025; 87426; 93005; 99284

== ENCOUNTER → 2024-04-21 | Outpatient (CLI) | payer MEDICARE, SELFPAY ==
[2024-04-21 12:27] LABS: Absolute Lymphocyte Count 1.96 X10^3/uL (0.83-4.51); Absolute Neutrophil Count 3.2 X10^3/uL (2.0-7.7); Basophil# 0.06 X10^3/uL; Eosinophil# 0.15 X10^3/uL; Eosinophils% 2.6 % (0-5); Lymphocyte # 1.96 X10^3/ul (0.83-4.51); Lymphocyte % 33.6 % (19-41); Mean Corp Hgb Conc 34.1 g/dL (32-36); Mean Corpuscular Hgb 30.2 pg (27.0-32.0); Mean Corpuscular Volume 88.4 fL (80-94); Mean Platelet Vol. 11.1 fl (6.2-12.0); Monocyte# 0.46 X10^3/uL; Monocyte% 7.9 % (0-10); NRBC Flagged by Analyzer 0 % (0-5); Neutrophil # 3.15 X10^3/uL (2.7-7.7); Platelet Count 229 K/mm3 (150-450); RBC Distribution Width SD 38.5 fl (35.1-43.9); Red Blood Count 4.64 M/mm3 (4.6-6.2); White Blood Count 5.8 K/mm3 (4.4-11.0)
[2024-04-21 12:51] LABS: ALB/GLOB Ratio 1.1 RATIO (0.9-2.4); AST(SGOT) 16 U/L (15-37); Alanine Aminotransfer ALT/SGPT 34 U/L (16-61); Albumin, Serum 3.9 g/dL (3.2-5.0); Alkaline Phosphatase 57 U/L (45-117); Anion Gap 6 (5-15); BUN 18 mg/dL (7-18); BUN/Creat Ratio 18.1 RATIO (10-20); Calcium,Total 9.4 mg/dL (8.5-10.1); Chloride 104 mmol/L (98-107); EST Glomerular Filtration Rate 79 mL/min (>60); Est Glom Filt Rate - Afr Amer 96 mL/min (>60); Globulin 3.7 g/dL (2.2-4.2); Glucose 103 mg/dL (74-106); PSA,Total- Diagnostic 0.76 ng/mL (0.0-4.0); Potassium 3.8 mmol/L (3.5-5.1); Protein, Total 7.6 g/dL (6.4-8.2); Sodium Level 138 mmol/L (136-145)
[2024-04-25 18:07] LABS: Testosterone, % Free 3.49 % (1.50-4.20); Testosterone, Free 9.07 ng/dL (5.00-21.00); Testosterone, Total 260 ng/dL (264-916)
== END | disposition home or self-care (01) ==
PROVIDERS: PCP Family Medicine; Referring Provider Family Medicine; Visit Provider Family Medicine
DX: E78.00 Pure hypercholesterolemia, unspecified (principal); C61 Malignant neoplasm of prostate; N52.9 Male erectile dysfunction, unspecified
CPT/HCPCS: 36415; 80053; 84153; 84402; 84403; 84443; 85025

== ENCOUNTER → 2024-05-18 | Outpatient (CLI) | payer MEDICARE, SELFPAY ==
[2024-05-28 10:08] LABS: Testosterone, % Free 1.92 % (1.50-4.20); Testosterone, Free 8.39 ng/dL (5.00-21.00); Testosterone, Total 437 ng/dL (264-916)
== END | disposition home or self-care (01) ==
PROVIDERS: PCP Family Medicine; Referring Provider Family Medicine; Visit Provider Family Medicine
DX: R79.89 Other specified abnormal findings of blood chemistry (principal)
CPT/HCPCS: 36415; 84402; 84403

== ENCOUNTER → 2025-03-31 | Outpatient (CLI) | payer MEDICARE, SELFPAY ==
[2025-03-31 13:12] LABS: PSA,Total - Annual Screen 0.69 ng/mL (0.02-4.00)
== END | disposition home or self-care (01) ==
LOC: MTLAB 09:26
PROVIDERS: PCP Family Medicine
DX: Z12.5 Encounter for screening for malignant neoplasm of prostate (principal)
CPT/HCPCS: 36415; 84153; G0103